=== PATIENT | female | born 1940 | race Caucasian/White ===

== ENCOUNTER → 2023-06-06 16:54 | Outpatient (REF) | payer OTHER, SELFPAY | LOC: WDC 16:54 | PROVIDERS: ATTENDING PHYSICIAN Internal Medicine Geriatric Medicine | DX: Z12.31 Encounter for screening mammogram for malignant neoplasm of breast (principal) | CPT/HCPCS: 77063; 77067 ==

== ENCOUNTER → 2023-07-17 12:46 | Outpatient (REF) | payer OTHER, SELFPAY | LOC: RAD 12:46 | PROVIDERS: ATTENDING PHYSICIAN Internal Medicine Geriatric Medicine | DX: R06.00 Dyspnea, unspecified (principal) | CPT/HCPCS: 71046 ==

== ENCOUNTER → 2023-07-31 07:52 | Outpatient (REF) | payer OTHER, SELFPAY | LOC: RSP 07:52 | PROVIDERS: ATTENDING PHYSICIAN Internal Medicine Geriatric Medicine | DX: R06.00 Dyspnea, unspecified (principal) | CPT/HCPCS: 94727; 94729; 88738; 94010 ==

== ENCOUNTER → 2023-08-13 08:58 | Outpatient (REF) | payer OTHER, SELFPAY | LOC: RAD 08:58 | PROVIDERS: ATTENDING PHYSICIAN Internal Medicine Endocrinology, Diabetes & Metabolism; FAMILY PHYSICIAN Internal Medicine Geriatric Medicine | DX: M81.0 Age-related osteoporosis without current pathological fracture (principal) | CPT/HCPCS: 77080 ==

== ENCOUNTER → 2023-08-17 10:24 | Outpatient (REF) | payer OTHER, SELFPAY ==
[2023-08-17 10:50] LABS: Calcium 10.7 mg/dl (8.4-10.2)
[2023-08-17 11:22] LABS: TSH 3.32 uIU/ml (0.47-4.68)
[2023-08-18 10:24] LABS: Intact PTH 82.2 pg/ml (13.6-85.8)
== END ==
LOC: OLABPV 10:24
PROVIDERS: ATTENDING PHYSICIAN Internal Medicine Endocrinology, Diabetes & Metabolism
DX: E21.0 Primary hyperparathyroidism (principal); E06.3 Autoimmune thyroiditis
CPT/HCPCS: 36415; 83970; 84443

== ENCOUNTER → 2023-09-24 09:32 | Outpatient (REF) | payer OTHER, SELFPAY | LOC: RCS 09:32 | PROVIDERS: ATTENDING PHYSICIAN Nuclear Medicine Nuclear Cardiology; FAMILY PHYSICIAN Internal Medicine Geriatric Medicine | DX: R06.02 Shortness of breath (principal); I35.1 Nonrheumatic aortic (valve) insufficiency; I34.0 Nonrheumatic mitral (valve) insufficiency | CPT/HCPCS: 93306 ==

== ENCOUNTER → 2023-09-28 10:56 | Outpatient (REF) | payer OTHER, SELFPAY ==
[2023-09-28 12:50] LABS: ALT (SGPT) 18 U/L (0-35); AST (SGOT) 26 U/L (14-36); Albumin 4.3 g/dl (3.5-5.0); Alkaline Phosphatase 76 U/L (38-126); Blood Urea Nitrogen 20 mg/dl (7-17); Calcium 10.2 mg/dl (8.4-10.2); Carbon Dioxide 28 mmol/L (22-30); Chloride 102 mmol/L (98-107); Glucose 88 mg/dl (70-99); HDL Cholesterol 73 mg/dl; LDL Cholesterol, Calculated 157 mg/dl; Potassium 4.6 mmol/L (3.5-5.1); Sodium 139 mmol/L (135-145); Total Bilirubin 0.7 mg/dl (0.2-1.3); Total Cholesterol 252 mg/dl (50-199); Total Protein 7.3 g/dl (6.3-8.2); Triglyceride 112 mg/dl (10-149); Very Low Density Lipoprotein 22 mg/dl (0-30); eGFR > 60.00
== END ==
LOC: OLABPV 10:56
PROVIDERS: ATTENDING PHYSICIAN Internal Medicine Geriatric Medicine
DX: R26.89 Other abnormalities of gait and mobility (principal); G95.9 Disease of spinal cord, unspecified; H81.13 Benign paroxysmal vertigo, bilateral; M81.0 Age-related osteoporosis without current pathological fracture; E21.3 Hyperparathyroidism, unspecified; E03.9 Hypothyroidism, unspecified; E78.2 Mixed hyperlipidemia; E55.9 Vitamin D deficiency, unspecified; M71.22 Synovial cyst of popliteal space [Baker], left knee; Z13.89 Encounter for screening for other disorder; R10.9 Unspecified abdominal pain; E83.52 Hypercalcemia
CPT/HCPCS: 36415; 80053; 80061; 84155; 84165

== ENCOUNTER → 2023-11-30 12:11 | Outpatient (REF) | payer OTHER, SELFPAY ==
[2023-11-30 15:24] LABS: AST (SGOT) 29 U/L (14-36); Albumin 4.4 g/dl (3.5-5.0); Alkaline Phosphatase 74 U/L (38-126); Blood Urea Nitrogen 23 mg/dl (7-17); Carbon Dioxide 31 mmol/L (22-30); Glucose 76 mg/dl (70-99); HDL Cholesterol 92 mg/dl; LDL Cholesterol, Calculated 98 mg/dl; Potassium 4.7 mmol/L (3.5-5.1); Total Bilirubin 0.7 mg/dl (0.2-1.3); Total Cholesterol 210 mg/dl (50-199); Triglyceride 100 mg/dl (10-149); Very Low Density Lipoprotein 20 mg/dl (0-30); eGFR > 60.00
[2023-11-30 15:33] LABS: ALT (SGPT) 20 U/L (0-35); Chloride 105 mmol/L (98-107); Sodium 139 mmol/L (135-145)
== END ==
LOC: OLABPV 12:11
PROVIDERS: ATTENDING PHYSICIAN Nuclear Medicine Nuclear Cardiology
DX: E78.5 Hyperlipidemia, unspecified (principal)
CPT/HCPCS: 36415; 80053; 80061

== ENCOUNTER → 2023-12-28 11:33 | Outpatient (REF) | payer OTHER, SELFPAY ==
[2023-12-28 12:44] LABS: % Basophils 0.5 % (0-2); % Eosinophils 2.8 % (0-6); % Immature Granulocytes 0.3 % (0-0.5); % Lymphocytes 30.9 % (20.5-51.1); % Monocytes 6.4 % (1.7-9.3); % Neutrophils 59.1 % (42.2-75.2); Absolute Eosinophils 0.2 10^3/uL (0-0.7); Absolute Lymphocytes 2.5 10^3/uL (1.2-3.4); Absolute Monocytes 0.5 10^3/uL (0.1-0.6); Absolute Neutrophils 4.7 10^3/uL (1.4-6.5); Hematocrit 43.5 % (37.0-47.0); Hemoglobin 14.1 g/dL (12.0-16.0); Mean Corp Hgb Conc. 32.4 g/dL (33.0-37.0); Mean Corpuscular Hgb 30.4 pg (27.0-31.0); Mean Corpuscular Volume 93.8 fL (81.0-99.0); Mean Platelet Volume 10.5 fL (7.4-10.4); Nucleated Red Blood Cells % 0 %; Platelet Count 313 10^3/uL (130-400); Red Blood Cell Count 4.64 10^6/uL (4.20-5.40); Red Cell Dist. Width 13.9 % (11.5-14.5)
[2023-12-28 12:56] LABS: Urine Albumin Negative (Neg - Trace); Urine Bilirubin Negative (Negative); Urine Character Clear (Clear); Urine Color Yellow; Urine Glucose Negative (Negative); Urine Ketone Negative (Negative); Urine Leukocyte Negative (Negative); Urine Nitrite Negative (Negative); Urine Occult Blood Negative (Negative); Urine Specific Gravity 1.005 (<1.030); Urine Urobilinogen Negative (Neg - 1+)
[2023-12-28 13:02] LABS: Vitamin D, 25-OH*** 44.4 ng/mL (30-80)
[2023-12-28 13:16] LABS: TSH 3.09 uIU/ml (0.47-4.68)
== END ==
LOC: OLABPV 11:33
PROVIDERS: ATTENDING PHYSICIAN Internal Medicine Geriatric Medicine
DX: E03.9 Hypothyroidism, unspecified (principal); E21.3 Hyperparathyroidism, unspecified; I70.0 Atherosclerosis of aorta; G95.9 Disease of spinal cord, unspecified; R26.89 Other abnormalities of gait and mobility; H81.13 Benign paroxysmal vertigo, bilateral; M81.0 Age-related osteoporosis without current pathological fracture; E55.9 Vitamin D deficiency, unspecified; Z13.89 Encounter for screening for other disorder; R10.9 Unspecified abdominal pain; G60.3 Idiopathic progressive neuropathy; R07.2 Precordial pain; R06.00 Dyspnea, unspecified
CPT/HCPCS: 36415; 81003; 82306; 84439; 84443; 85025

== ENCOUNTER 2024-01-18 14:39 | Emergency (ER) | payer OTHER, SELFPAY ==
[2024-01-18 14:41] VITALS: BP 135/79
--- NOTE | 2024-01-18 15:30 | ED.GENMED ---
History of Present Illness
General
Chief Complaint: Fall
Time Seen by Provider: 01/18/24 15:23
History of Present Illness
History of Present Illness:
83-year-old female presents emergency department after a mechanical fall. She states that she was got caught on a rug and she fell to the ground. She struck the right side of her face and head on the ground. No loss of consciousness. She is not
on anticoagulants. Denies neck pain, chest pain, shortness of breath. She does also report mild pain to the right hand
Past History
Past History
ED Past Medical History: Hypercholesterolemia, Hypothyroidism and Other
ED Past Surgical History: None
Social History
Tobacco: Non-smoker
Alcohol: Occasional
Personal:
Living: with family
Review of Systems
Review of Systems
Allergies reviewed?: Yes
All Other Systems: ROS reviewed and negative except as documented in HPI and ROS
Phy Exam
Physical Exam
Physical Exam:
GEN: Well appearing, NAD, WDWN
HEENT: Oral mucosa moist, no scleral icterus. Mild ecchymosis to the right zygoma as well as the right upper lip, no obvious dental injuries, extraocular motions intact. No midline cervical spine tenderness
Cardiac: Regular rate
Lung: No respiratory distress, no tachypnea
MSK: No gross deformity or injuries. No swelling or ecchymosis, no deformity to the right hand, range of motion of the right wrist and right digits all normal
Skin: Good color, no pallor or jaundice, no rashes
Neuro: AO x3, moves all extremities freely
Psych: Calm, cooperative
Course
Orders/Labs/Results
Orders:
Orders
01/18/24 15:29
CT Facial Bones W/o Iv Contras Urgent
Comment:
Reason For Exam: fall
CT Head W/o Iv Contrast Urgent
Comment:
Reason For Exam: fall head strike
Vital Signs
Initial and Last Documented VS:
Initial Vital Signs
Temp Pulse Resp BP Pulse Ox
98.2 F 79 18 135/79 98
01/18/24 14:41 01/18/24 14:41 01/18/24 14:41 01/18/24 14:41 01/18/24 14:41
Last Documented Vital Signs
Temp Pulse Resp BP Pulse Ox
98.2 F 79 18 135/79 98
01/18/24 14:41 01/18/24 14:41 01/18/24 17:38 01/18/24 17:38 01/18/24 17:38
MDM/Problems Addressed
MDM/Problems Addressed:
Imaging obtained due to the patient's age, imaging grossly unremarkable, exam is reassuring
*Critical Care Note
Total Time (30-74mins, 75-104mins- exclusive of procedures): Not Applicable
ED Attending Note
-
Portions of this chart may have been created with voice recognition software.� Occasional wrong word or��sound alike� substitutions may have occurred due to the inherent limitations of voice recognition software.
Discharge Plan
Departure
Patient Disposition: Home (Routine Discharge)
Date of Disposition: 01/18/24
Time of Disposition: 17:26
Patient with high blood pressure during this ER visit?: No
Discharge Problem:
Contusion of face
Instructions: Head Injury in Adults (DC)
Prescriptions:
No Action
cyanocobalamin (vitamin B-12) 1,000 MCG tablet
1,000 mcg PO QPM
levothyroxine 100 MCG tablet
100 mcg PO DAILY AT 0700
cholecalciferol (vitamin D3) 1,000 UNITS tablet
1,000 units PO QPM
yiezxvzi-wtz-otsj-[id number]-vit K-lut [Centrum Silver Women] 1 EACH tablet
1 ea PO QPM
acetaminophen [Tylenol Extra Strength] 500 MG tablet
1,000 mg PO Q6HPRN PRN (Reason: pain)
phenylephrine HCl [Sudafed PE] 10 MG tablet
20 mg PO DAILY PRN (Reason: nasal congestion)
coenzyme Q10 200 MG capsule
200 mg PO HS
Referrals:
Mikhail Rincon MD [Family Provider] -
Interventions
Interventions:
*Risk Screen - Suicide Last Done: 01/18/24 14:41
*General Assessment Last Done: 01/18/24 14:41
*Neglect/Abuse Screening Last Done: 01/18/24 14:41
*Nursing Disposition Last Done: 01/18/24 17:38
ED-Musculoskeletal Assessment Last Done: 01/18/24 15:47
ED- Neurological Assessment Last Done: 01/18/24 15:47
ED-Skin Assessment Last Done: 01/18/24 15:47
Discharge Date and Time
Discharge Date/Time: 01/18/24 17:46
Print Language: OMANI
[2024-01-18 17:38] VITALS: BP 135/79
== END 2024-01-18 17:46 | disposition home or self-care (01) ==
LOC: EMR 14:39
PROVIDERS: EMERGENCY PHYSICIAN Emergency Medicine; FAMILY PHYSICIAN Internal Medicine Geriatric Medicine
DX: S00.83XA Contusion of other part of head, initial encounter (principal); S00.531A Contusion of lip, initial encounter; M79.641 Pain in right hand; W19.XXXA Unspecified fall, initial encounter; E03.9 Hypothyroidism, unspecified; E78.00 Pure hypercholesterolemia, unspecified; Z88.6 Allergy status to analgesic agent
CPT/HCPCS: 99284; 70450; 70486

== ENCOUNTER → 2024-01-22 15:34 | Outpatient (REF) | payer OTHER, SELFPAY | LOC: RAD 15:34 | PROVIDERS: ATTENDING PHYSICIAN Nurse Practitioner Primary Care | DX: S20.211A Contusion of right front wall of thorax, initial encounter (principal); W19.XXXA Unspecified fall, initial encounter; M41.9 Scoliosis, unspecified | CPT/HCPCS: 71101 ==

== ENCOUNTER → 2024-01-28 12:07 | Outpatient (REF) | payer OTHER, SELFPAY ==
[2024-01-28 13:06] LABS: D-Dimer 1.51 ug/mlFEU (0.00-0.50)
[2024-01-28 13:31] LABS: Blood Urea Nitrogen 23 mg/dl (7-17); Calcium 10.7 mg/dl (8.4-10.2); Carbon Dioxide 27 mmol/L (22-30); Chloride 101 mmol/L (98-107); Glucose 94 mg/dl (70-99); Potassium 4.9 mmol/L (3.5-5.1); Sodium 140 mmol/L (135-145); eGFR > 60.00
== END ==
LOC: RAD 12:07
PROVIDERS: ATTENDING PHYSICIAN Nurse Practitioner Family
DX: M25.531 Pain in right wrist (principal); W19.XXXD Unspecified fall, subsequent encounter
CPT/HCPCS: 36415; 73110; 80048; 84550; 85379

== ENCOUNTER → 2024-01-29 10:24 | Outpatient (REF) | payer OTHER, SELFPAY | LOC: RAD 10:24 | PROVIDERS: ATTENDING PHYSICIAN Nurse Practitioner Family; FAMILY PHYSICIAN Internal Medicine Geriatric Medicine | DX: R79.89 Other specified abnormal findings of blood chemistry (principal) | CPT/HCPCS: 93971 ==

== ENCOUNTER → 2024-08-12 13:09 | Outpatient (REF) | payer OTHER, SELFPAY | LOC: RAD 13:09 | PROVIDERS: ATTENDING PHYSICIAN Internal Medicine Geriatric Medicine | DX: E78.2 Mixed hyperlipidemia (principal); E03.9 Hypothyroidism, unspecified; E21.3 Hyperparathyroidism, unspecified; G95.9 Disease of spinal cord, unspecified; R26.89 Other abnormalities of gait and mobility; H81.13 Benign paroxysmal vertigo, bilateral; M81.0 Age-related osteoporosis without current pathological fracture; E55.9 Vitamin D deficiency, unspecified; R10.9 Unspecified abdominal pain; Z13.89 Encounter for screening for other disorder; G60.3 Idiopathic progressive neuropathy; R06.00 Dyspnea, unspecified; M41.9 Scoliosis, unspecified; J18.9 Pneumonia, unspecified organism; I95.1 Orthostatic hypotension | CPT/HCPCS: 71046 ==

== ENCOUNTER → 2024-08-13 10:30 | Outpatient (REF) | payer OTHER, SELFPAY ==
[2024-08-13 11:00] LABS: % Basophils 0.8 % (0-2); % Eosinophils 1.7 % (0-6); % Immature Granulocytes 0.1 % (0-0.5); % Lymphocytes 22.7 % (20.5-51.1); % Monocytes 8.7 % (1.7-9.3); Absolute Basophils 0.1 10^3/uL (0-0.2); Absolute Eosinophils 0.1 10^3/uL (0-0.7); Absolute Lymphocytes 1.7 10^3/uL (1.2-3.4); Absolute Monocytes 0.7 10^3/uL (0.1-0.6); Absolute Neutrophils 5.1 10^3/uL (1.4-6.5); Hematocrit 39.5 % (37.0-47.0); Hemoglobin 12.5 g/dL (12.0-16.0); Mean Corp Hgb Conc. 31.6 g/dL (33.0-37.0); Mean Corpuscular Hgb 29.6 pg (27.0-31.0); Mean Corpuscular Volume 93.6 fL (81.0-99.0); Mean Platelet Volume 9.7 fL (7.4-10.4); Nucleated Red Blood Cells % 0 %; Platelet Count 516 10^3/uL (130-400); Red Blood Cell Count 4.22 10^6/uL (4.20-5.40); White Blood Cell Count 7.7 10^3/uL (4.8-10.8)
[2024-08-13 11:43] LABS: ALT (SGPT) 24 U/L (0-35); AST (SGOT) 29 U/L (14-36); Albumin 3.8 g/dl (3.5-5.0); Alkaline Phosphatase 89 U/L (38-126); Blood Urea Nitrogen 18 mg/dl (7-17); Calcium 10.2 mg/dl (8.4-10.2); Carbon Dioxide 29 mmol/L (22-30); Chloride 102 mmol/L (98-107); Glucose 93 mg/dl (70-99); Potassium 4.9 mmol/L (3.5-5.1); Sodium 142 mmol/L (135-145); Total Bilirubin 0.6 mg/dl (0.2-1.3); Total Protein 6.5 g/dl (6.3-8.2); eGFR > 60.00
== END ==
LOC: OLABPV 10:30
PROVIDERS: ATTENDING PHYSICIAN Internal Medicine Geriatric Medicine
DX: E78.2 Mixed hyperlipidemia (principal); E03.9 Hypothyroidism, unspecified; E21.3 Hyperparathyroidism, unspecified; G95.9 Disease of spinal cord, unspecified; R26.89 Other abnormalities of gait and mobility; H81.13 Benign paroxysmal vertigo, bilateral; M81.0 Age-related osteoporosis without current pathological fracture; E55.9 Vitamin D deficiency, unspecified; R10.0 Acute abdomen; Z13.89 Encounter for screening for other disorder; G60.3 Idiopathic progressive neuropathy; R06.00 Dyspnea, unspecified; M41.9 Scoliosis, unspecified; J18.9 Pneumonia, unspecified organism; I95.1 Orthostatic hypotension
CPT/HCPCS: 36415; 80053; 85025

== ENCOUNTER → 2024-08-14 16:36 | Outpatient (REF) | payer OTHER, SELFPAY | LOC: RAD 16:36 | PROVIDERS: ATTENDING PHYSICIAN Internal Medicine Geriatric Medicine | DX: R06.00 Dyspnea, unspecified (principal) | CPT/HCPCS: 71260; Q9967 ==

== ENCOUNTER → 2024-08-22 10:13 | Outpatient (REF) | payer OTHER, SELFPAY ==
[2024-08-22 11:07] LABS: % Basophils 1.4 % (0-2); % Immature Granulocytes 0.2 % (0-0.5); % Lymphocytes 32.1 % (20.5-51.1); % Neutrophils 55.3 % (42.2-75.2); Absolute Basophils 0.1 10^3/uL (0-0.2); Absolute Eosinophils 0.2 10^3/uL (0-0.7); Absolute Monocytes 0.5 10^3/uL (0.1-0.6); Absolute Neutrophils 3.5 10^3/uL (1.4-6.5); Hematocrit 41.5 % (37.0-47.0); Hemoglobin 13.4 g/dL (12.0-16.0); Mean Corp Hgb Conc. 32.3 g/dL (33.0-37.0); Mean Corpuscular Hgb 29.4 pg (27.0-31.0); Mean Platelet Volume 9.6 fL (7.4-10.4); Nucleated Red Blood Cells % 0 %; Platelet Count 472 10^3/uL (130-400); Red Blood Cell Count 4.56 10^6/uL (4.20-5.40); Red Cell Dist. Width 13.7 % (11.5-14.5); White Blood Cell Count 6.4 10^3/uL (4.8-10.8)
[2024-08-22 13:19] LABS: ALT (SGPT) 18 U/L (0-35); AST (SGOT) 24 U/L (14-36); Albumin 4.2 g/dl (3.5-5.0); Alkaline Phosphatase 92 U/L (38-126); Blood Urea Nitrogen 12 mg/dl (7-17); Calcium 10.3 mg/dl (8.4-10.2); Carbon Dioxide 23 mmol/L (22-30); Chloride 104 mmol/L (98-107); Glucose 97 mg/dl (70-99); HDL Cholesterol 58 mg/dl; LDL Cholesterol, Calculated 82 mg/dl; Potassium 4.7 mmol/L (3.5-5.1); Sodium 139 mmol/L (135-145); Total Bilirubin 0.6 mg/dl (0.2-1.3); Total Cholesterol 165 mg/dl (50-199); Total Protein 6.9 g/dl (6.3-8.2); Triglyceride 129 mg/dl (10-149); Very Low Density Lipoprotein 25 mg/dl (0-30); eGFR > 60.00
[2024-08-22 13:28] LABS: TSH 4.76 uIU/ml (0.47-4.68)
[2024-08-22 13:57] LABS: NT-proBNP 116 pg/ml
[2024-08-23 11:01] LABS: Intact PTH 90.5 pg/ml (13.6-85.8)
== END ==
LOC: OLABPV 10:13
PROVIDERS: ATTENDING PHYSICIAN Nuclear Medicine Nuclear Cardiology; FAMILY PHYSICIAN Internal Medicine Geriatric Medicine; REFERRING PHYSICIAN Internal Medicine Endocrinology, Diabetes & Metabolism
DX: D69.6 Thrombocytopenia, unspecified (principal); I31.39 Other pericardial effusion (noninflammatory); R06.02 Shortness of breath; I45.10 Unspecified right bundle-branch block; E78.5 Hyperlipidemia, unspecified; E21.0 Primary hyperparathyroidism; E06.3 Autoimmune thyroiditis
CPT/HCPCS: 36415; 80053; 80061; 83880; 83970; 84443; 85025

== ENCOUNTER → 2024-08-25 14:38 | Outpatient (REF) | payer OTHER, SELFPAY | LOC: HWRCS 14:38 | PROVIDERS: ATTENDING PHYSICIAN Internal Medicine Geriatric Medicine | DX: I31.39 Other pericardial effusion (noninflammatory) (principal) | CPT/HCPCS: 93306 ==

== ENCOUNTER → 2024-08-29 10:31 | Outpatient (REF) | payer OTHER, SELFPAY | LOC: RCS 10:31 | PROVIDERS: ATTENDING PHYSICIAN Internal Medicine Geriatric Medicine | DX: E78.2 Mixed hyperlipidemia (principal); E03.9 Hypothyroidism, unspecified; E21.3 Hyperparathyroidism, unspecified; G95.9 Disease of spinal cord, unspecified; R26.89 Other abnormalities of gait and mobility; M81.0 Age-related osteoporosis without current pathological fracture; E55.9 Vitamin D deficiency, unspecified; R10.9 Unspecified abdominal pain; G60.3 Idiopathic progressive neuropathy; R06.00 Dyspnea, unspecified; Z13.89 Encounter for screening for other disorder; M41.9 Scoliosis, unspecified; I95.1 Orthostatic hypotension | CPT/HCPCS: 93225; 93226 ==

== ENCOUNTER → 2024-08-29 12:36 | Outpatient (REF) | payer OTHER, SELFPAY ==
[2024-08-29 16:06] LABS: Vitamin D, 25-OH*** 37.1 ng/mL (30-80)
== END ==
LOC: OLABPV 12:36
PROVIDERS: ATTENDING PHYSICIAN Internal Medicine Geriatric Medicine
DX: E55.9 Vitamin D deficiency, unspecified (principal)
CPT/HCPCS: 36415; 82306

== ENCOUNTER → 2024-09-23 13:47 | Outpatient (REF) | payer OTHER, SELFPAY | LOC: WDC 13:47 | PROVIDERS: ATTENDING PHYSICIAN Internal Medicine Geriatric Medicine | DX: Z12.31 Encounter for screening mammogram for malignant neoplasm of breast (principal) | CPT/HCPCS: 77063; 77067 ==

== ENCOUNTER → 2024-10-17 11:00 | Outpatient (REF) | payer OTHER, SELFPAY ==
[2024-10-17 11:17] VITALS: BP 130/77; BP_SYST 84
== END ==
LOC: RADI 11:00
PROVIDERS: ATTENDING PHYSICIAN Internal Medicine; FAMILY PHYSICIAN Internal Medicine Geriatric Medicine
DX: J90 Pleural effusion, not elsewhere classified (principal); Z53.8 Procedure and treatment not carried out for other reasons
CPT/HCPCS: 76604